=== PATIENT | female | born 1940 | race Caucasian/White ===

== ENCOUNTER 2016-09-13 10:46 | Day surgery (SDC) | payer MEDICARE, OTHER ==
--- NOTE | ~2016-09-13 | EGD ---
EGD REPORT [facility] [address] [address] NAME: JENNIFER FLORES : 44 STATUS : REG [facility]#: [id number] AGE: 76 ADM/REG DATE : 09/13/16 MR#: [id number] REPORT SERV DATE: 09/13/16 DICTATED BY: DEBI HERNANDEZ DATE: 09/13/16 REPORT STATUS : Draft [facility]ANS[facility]IBED BY: [facility] DATE: 09/13/16 Endoscopy Center Patient Name: Jennifer Flores Date of : 1940 Attending MD: DEBI HERNANDEZ MD Procedure Date No Time: 09/13/2016 Procedure: Upper GI endoscopy Indications: Abdominal pain in the right upper quadrant, Dysphagia, Heartburn, Suspected esophageal reflux Referring MD: Martina Belle MD Medicines: as per anesthesia Complications: No immediate complications. Procedure: Pre-Anesthesia Assessment: - ASA Grade Assessment: II - A patient with mild systemic disease. After obtaining informed consent, the endoscope was passed under direct vision. Throughout the procedure, the patient's blood pressure, pulse, and oxygen saturations were monitored continuously. The GIF [id number] was introduced through the mouth, and advanced to the third part of duodenum. The upper GI endoscopy was accomplished without difficulty. The patient tolerated the procedure. Findings: A moderate Schatzki ring (acquired) was found at the gastroesophageal junction. A guidewire was placed under fluoroscopic guidance and the scope was withdrawn. Dilation was performed with a Savary dilator with no resistance at 45 Fr. A medium-sized hiatus hernia was present. The examined duodenum was normal. Impression: - Moderate Schatzki ring. Dilated. - Hiatus hernia. - Normal examined duodenum. Recommendation: - Follow an antireflux regimen. - Continue present medications. Procedure Code(s): --- Professional --- 78685, Esophagogastroduodenoscopy, flexible, transoral; with insertion of guide wire followed by passage of dilator(s) through esophagus over guide wire Diagnosis Code(s): --- Professional --- EGD REPORT [facility] [address] [place], [place] [address]. [address] NAME: JENNIFER FLORES : [birth year] STATUS : REG [facility] [place] PAT#: [id number] AGE: 76 ADM/REG DATE : 09/13/16 MR#: [id number] REPORT SERV DATE: 09/13/16 DICTATED BY: DEBI HERNANDEZ. DATE: 09/13/16 REPORT STATUS : Draft TRANSCRIBED BY: [email or web address] DATE: 09/13/16 K22.2, Esophageal obstruction K44.9, Diaphragmatic hernia without obstruction or gangrene R10.11, Right upper quadrant pain R13.10, Dysphagia, unspecified R12, Heartburn CPT copyright 2013 [employer]. All rights reserved. The codes documented in this report are preliminary and upon educational interpreter review may be revised to meet current compliance requirements. DEBI HERNANDEZ MD 09/13/2016 12:52 PM This report has been signed electronically. Number of Addenda: 0 Note Initiated On: 09/13/2016 12:19 PM Scope Withdrawal Time 0 hours 0 minutes 0 seconds [address] [facility] [place] [address]
[~2016-09-13 10:46] MED LIST: ANASPAZ0.125 MG SL; ASAB PO; ATV1 PO; CIP5 PO; CLIMARA 0.050.05 MG TOP; CRESTOR5 MG PO; ENDOCET1 TAB PO; FLEX PO; FLOMAX4 PO; GLUCPH PO; KLOR-CON 1010 MEQ PO; MACRODANTIN 10100 MG PO; METPAKSF PO; NORCO1 TA1 PO; NORCO1 TA2 PO; POTASSIUM CITRATE PO; PREM625 PO; REG PO; SYN.05 PO; ULTRAM ER100 MG PO; UROCIT-K 5540 MG; VITAMIN B-121000 MC1 SL; VITAMIN D31000 UNIT PO; WELCHOL 625 MG625 MG PO; ZANTAC 150 PO; ZANTAC 75 PO; ZOCOR40 PO
== END 2016-09-13 23:59 | disposition home or self-care (01) ==
LOC: DMU 10:46
PROVIDERS: Internal Medicine Gastroenterology
PROC: 0D748ZZ Dilation of Esophagogastric Junction, Via Natural or Artificial Opening Endoscopic (ICD-10-PCS; principal; 2016-09-13 12:00)
DX: K22.2 Esophageal obstruction (principal); K44.9 Diaphragmatic hernia without obstruction or gangrene; I10 Essential (primary) hypertension; K21.9 Gastro-esophageal reflux disease without esophagitis; E11.9 Type 2 diabetes mellitus without complications; E03.9 Hypothyroidism, unspecified; E78.00 Pure hypercholesterolemia, unspecified; Z88.1 Allergy status to other antibiotic agents; Z79.899 Other long term (current) drug therapy; Z79.891 Long term (current) use of opiate analgesic; Z90.89 Acquired absence of other organs; Z90.49 Acquired absence of other specified parts of digestive tract; Z87.442 Personal history of urinary calculi; Z90.710 Acquired absence of both cervix and uterus; Z98.41 Cataract extraction status, right eye; Z98.42 Cataract extraction status, left eye; Z98.890 Other specified postprocedural states
CPT/HCPCS: 76000; 82962